=== PATIENT | female | born 1950 | race Hispanic/Latino ===

== ENCOUNTER 2019-11-05 07:38 | Outpatient (CLI) | payer MEDICARE ==
--- NOTE | 2019-11-05 10:26 | MRI ---
EXAM: MRI of the brain without and with contrast HISTORY: Dizziness and headaches. History of lung cancer COMPARISON: None TECHNIQUE: Multiplanar multisequence MR images were obtained of the brain without and with IV contras t. FINDINGS: The brain demonstrates normal signal intensity on all obtained sequences. No restricted diffusion. No abnormal enhancement. Pseudoenhancement from artifact is seen in the right temporal lobe. No hydronephrosis. No extra-axial fluid collection or intracranial hemorrhage. The expected flow voids are present. Corpus callosum, pituitary, and craniocervical junction are within normal limits. The calvarium and overlying soft tissues are unremarkable. The paranasal sinuses and mastoid air cells are well aerated. IMPRESSION: No evidence of acute intracranial abnormality.
[2019-11-05] MEDS ORDERED: Magnevist 469MG/ML 20 ML VIAL ONE (10:54)
--- NOTE | 2019-11-05 11:32 | PET ---
Radionucleotide PET scan with CT attenuation correction HISTORY: Malignant neoplasm left upper lung lobe. Initial staging. COMPARISON: The report from CT chest [facility] in [place] dated 09/29/2019. Images from that exam are not available. There are images from a CT lung biopsy dated 10/21/2019 available and a chest radiograph from 10/21/2019. FINDINGS: Physiologic uptake of the radiotracer throughout the enteric system and along each urinary tract. There is markedly increased uptake associated with the large mass at the lateral aspect of the left upper lobe posteriorly. Maximum SUV 32.2. No abnormal uptake within the mediastinum. Lobular prominence of the right thyroid lobe evident without abnormal uptake. No focal abnormalities are evident within the liver. Nondiagnostic CT attenuation correction images show calcified and noncalcified, nonenlarged mediastin al lymph nodes. Evidence of healed granulomatous disease. There is calcification of the coronary arteries. Mild fusiform ectasia of the lower abdominal aorta measuring up to 2.5 cm AP diameter. Dive rticula arise from the colon without adjacent inflammation. IMPRESSION: Markedly hypermetabolic left upper lobe lung mass. No evidence of metastatic disease. Atherosclerosis. Diverticulosis. No evidence of diverticulitis.
--- NOTE | 2019-11-05 13:20 | ULT ---
ULTRASOUND THYROID STANDARD: HISTORY: Thyroid nodules. COMPARISON: None. FINDINGS: Real-time otero scale and color evaluation of the thyroid was performed. The isthmus measures 3 mm in AP dimension. The right lobe measures 2.6 x 4.8 x 1.9 cm and the left l obe measures 1.8 x 4.3 x 1.7 cm. In the inferior pole of the right lobe is an isoechoic wider than tall nodule with lobular margins wi thout echogenic foci measuring 1.9 x 2.1 x 1.5 cm. This is a TIRADS 4: moderately suspicious in siz e, fine needle aspiration is recommended. At the interpolar region of the right lobe of the thyroid posterior margin is a well-defined solid hy poechoic nodule which is wider than tall with well-defined margins without echogenic foci measuring 1 .2 x 1.2 x 0.7 cm. This is TIRADS 4: moderately suspicious. Given its size, followup in 6 months t o 1 year is recommended. In the superior pole left lobe of the thyroid is a solid hypoechoic nodule which is wider than tall m easuring 0.9 x o.7 x 0.6 cm with ill-defined margins without echogenic foci. This is TIRADS 4: mode rately suspicious. Given its small size, no followup or aspiration is required. IMPRESSION: 1. Dominant nodule inferior pole of the right lobe of the thyroid does meet fine needle aspiration p er TIRADS criteria. 2. The smaller nodule in the right lobe of the thyroid does meet 4-obhaa-2-year followup per TIRADS criteria. POS: OFF
== END 2019-11-05 07:39 | disposition home or self-care (01) ==
LOC: PET 07:38
PROVIDERS: ATTEND Internal Medicine Hematology & Oncology
DX: C34.12 Malignant neoplasm of upper lobe, left bronchus or lung (principal); E04.1 Nontoxic single thyroid nodule; I70.90 Unspecified atherosclerosis
CPT/HCPCS: 70553; 76536; 78815; A9552; A9579

== ENCOUNTER 2020-03-10 09:05 | Outpatient (CLI) | payer MEDICARE ==
[2020-03-10] MEDS ORDERED: Iopamidol 370 76% 100 ML VIAL ONE (11:42)
--- NOTE | 2020-03-10 14:13 | CT ---
CHEST CT: DATE: 03/10/2020. COMPARISON: None. HISTORY: Lung cancer. TECHNIQUE: Axial CT imaging at 5 mm intervals from the thoracic inlet through the upper abdomen with intravenous contrast. Coronal and sagittal reformatted imaging provided. FINDINGS: The partially imaged thyroid gland is heterogeneous and possibly enlarged on the right. There may be a thyroid nodule on the right, but assessment is limited. Recommend a followup thyroid ultrasound. No lymphadenopathy is noted in the axillary regions. No hilar or mediastinal lymphadenopathy is appr eciated. The patient appears status post left upper lobectomy. There is small volume anterior superior medias tinal fluid. No dominant pulmonary parenchymal mass lesion or nodule noted within the left lower lobe. There is a tiny right middle lobe nodule measuring in the 4 mm range on axial image 31. When compare d to PET CT performed 11/05/2019, the tiny pulmonary nodule within the right middle lobe is probably s table. Limited assessment of the upper abdomen appears grossly unremarkable. Review of the osseous structures demonstrates interval development of focal areas of sclerosis involv ing the lateral aspect of the left posterolateral 6th rib and lateral left 7th rib. The appearance i s most consistent with 2 new subacute fractures. Clinical correlation is essential. Osseous metasta tic disease is a much less likely possibility given the appearance of the finding at the level of the 6th rib and the fact that this involves 2 adjacent ribs. IMPRESSION: 1. Status post left upper lobectomy. No lymphadenopathy. 2. Tiny right middle lobe pulmonary nodule, stable when compared to prior imaging. 3. Abnormal appearance of the thyroid gland for which dedicated thyroid ultrasound is advised. 4. Abnormality involving the left 6th and 7th ribs, likely on the basis of interval development of s ubacute rib fractures. Continued followup advised. POS: KRISHNA
== END 2020-03-10 09:06 | disposition home or self-care (01) ==
LOC: CT 09:05
PROVIDERS: ATTEND Internal Medicine Medical Oncology
DX: C34.12 Malignant neoplasm of upper lobe, left bronchus or lung (principal); R91.1 Solitary pulmonary nodule; R93.7 Abnormal findings on diagnostic imaging of other parts of musculoskeletal system; Z90.2 Acquired absence of lung [part of]
CPT/HCPCS: 71260; Q9967

== ENCOUNTER 2020-04-06 08:45 | Day surgery (SDC) | payer MEDICARE ==
[2020-04-06] MEDS ORDERED: Sodium Chloride 0.9% 20 ML ONE (09:00)
[2020-04-06] MEDS ORDERED: Acetaminophen 500 MG TAB PO PRN (09:12)
[2020-04-06] MEDS ORDERED: diphenhydrAMINE 25 MG CAP PO PRN (09:12)
[2020-04-06] MEDS ORDERED: Magnesium 2 GM/50 ML 2 GM in Premix Bag 1 BAG IVPB SCH (09:15)
[2020-04-06] MEDS ORDERED: Calcium Gluconate 4.6 MEQ in Sodium Chloride 0.9% 100 ML IVPB SCH (09:30)
[2020-04-06 16:32] VITALS: TEMP 98
[2020-04-06 17:49] VITALS: BP 138/70
[2020-04-06 17:56] LABS: #Eosinphils 0.1 thou/uL (0.0-0.7); #Lymphocytes 2.2 thou/uL (1.20-3.40); #Monocytes 0.8 thou/uL (0.11-0.59); #Neutrophils 7.4 thou/uL (1.40-6.50); %Basophils 0.5 % (0.0-1.0); %Eosinophils 0.8 % (0.0-10.0); %Lymphocytes 20.4 % (21.0-51.0); %Monocytes 7.8 % (0.0-10.0); %Neutrophils 70.5 % (42.0-75.0); Hemoglobin 10.9 g/dL (12.0-16.0); Mean Corpuscular Hemoglobin 31.7 pg (27.0-31.0); Mean Corpuscular Volume 93.3 fL (78.0-98.0); Mean Platelet Volume 9.1 fL (7.4-10.4); Platelet Count 212 thou/uL (130-400); Red Blood Cell (RBC) Count 3.45 mill/uL (4.20-5.40); White Blood Cell (WBC) Count 10.5 thou/uL (4.8-10.8)
[2020-04-06 18:22] LABS: ALT (SGPT) 10 U/L (8-55); AST (SGOT) 14 U/L (5-34); Albumin 3.8 g/dL (3.4-4.8); Alkaline Phosphatase 101 U/L (40-110); Anion Gap 14 mmol/L (10-20); BUN (Urea Nitrogen) 9 mg/dL (9.8-20.1); Bilirubin, Total 0.5 mg/dL (0.2-1.2); Calc. Creatinine Clearance 0 mL/min (70-130); Calcium 7.1 mg/dL (7.8-10.44); Carbon Dioxide 23 mmol/L (23-31); Chloride 104 mmol/L (98-107); Estimated GFR-MDRD 71; Globulin 2.5 g/dL (2.4-3.5); Glucose 99 mg/dL (80-115); Magnesium 1.4 mg/dL (1.6-2.6); Potassium 4.3 mmol/L (3.5-5.1); Protein, Total 6.3 g/dL (6.0-8.3); Sodium 137 mmol/L (136-145)
== END 2020-04-06 17:50 | disposition home or self-care (01) ==
LOC: ONC/OP 08:45
PROVIDERS: ATTEND Internal Medicine Medical Oncology
PROC: 30233N1 Transfusion of Nonautologous Red Blood Cells into Peripheral Vein, Percutaneous Approach (ICD-10-PCS; principal; 2020-04-06)
DX: D64.9 Anemia, unspecified (principal); E83.42 Hypomagnesemia; E83.51 Hypocalcemia
CPT/HCPCS: 36430; 80053; 83735; 85025; 86850; 86900; 86901; 96365; 96367; J3475; J3490; P9016; Q0163

== ENCOUNTER 2020-07-05 09:12 | Outpatient (CLI) | payer MEDICARE ==
--- NOTE | 2020-07-05 10:35 | CT ---
CT of the chest: 07/05/2020 COMPARISON: 03/10/2020 HISTORY: Left upper lobectomy for lung cancer, history of chemotherapy treatment TECHNIQUE: Axial CT imaging obtained at 3 mm intervals through the chest with IV contrast. Coronal an d sagittal reformatted imaging obtained. FINDINGS: No axillary lymphadenopathy is seen. The imaged upper abdomen appears stable. There is a stable nonspecific hyperenhancing lesion within t he posterior aspect of the right lobe of the liver measuring 7 mm on axial image 68. There is a tiny hypodensity in the superior aspect of the right lobe of the liver on image [address] ability of these lesions suggests benign etiology. These lesions are too small to characterize at this time and continued follow-up is suggested. No significant pleural, pericardial, or mediastinal fluid is seen. Patient is status post right upper lobectomy. There has been interval development of subcarinal lymphadenopathy with internal areas of hypodensity suggesting possible internal necrosis. This new subcarinal adenopathy measures 1.9 cm in AP dimension. No left hilar lymphadenopathy is seen. There is no pneumothorax on either side. There are mild increased linear interstitial densities noted within the left lower lobe, particularly within the peripheral inferior aspect of the left lower lobe. Similar mild increased linear interstitial density seen peripherally within the inferior lateral aspe ct of the right lower lobe. No discrete pulmonary parenchymal mass lesion or nodule is noted within the right lung. Stable small anterior right middle lobe nodule noted on image 57 measuring in the 4 mm range. No discrete endobronchial lesion is seen. There is a new precarinal lymph node measuring 1.1 cm in AP dimension. There is a new subtle small ri ght hilar node best seen on axial image 38 measuring 8 mm in craniocaudal dimension. Stable prominence of the right lobe of the thyroid gland noted. Right thyroid nodule was better asses sed on the 11/05/2019 ultrasound. Review of the osseous structures demonstrates subtle irregularity involving the cortex of the left si xth and seventh ribs, less conspicuous than on the prior examination, likely related to prior fractures. These findings would be better assessed on follow-up PET scan as well to exclude the possi bility of pathologic fracture on the basis of subtle metastatic lesions. IMPRESSION: Interval development of lymphadenopathy within the subcarinal region. Additional new lymp h nodes are seen in the region of the precarinal area and right hilum. Findings are suspicious for malignancy. Correlation with PET scan advised. Results discussed with Dr. Moeller 10:31 AM 07/05/2020
[2020-07-05] MEDS ORDERED: Iopamidol 370 76% 100 ML VIAL ONE (16:16)
== END 2020-07-05 09:13 | disposition home or self-care (01) ==
LOC: BICCT 09:12
PROVIDERS: ATTEND Internal Medicine Medical Oncology
DX: Z08 Encounter for follow-up examination after completed treatment for malignant neoplasm (principal); R59.0 Localized enlarged lymph nodes; Z85.118 Personal history of other malignant neoplasm of bronchus and lung; Z98.890 Other specified postprocedural states
CPT/HCPCS: 36415; 71260; 80053; 82248; 83615; 83735; 84100; 84550; Q9967

== ENCOUNTER 2020-07-14 08:14 | Outpatient (CLI) | payer MEDICARE ==
--- NOTE | 2020-07-14 10:29 | PET ---
EXAM: PET/CT HISTORY: Malignant neoplasm of left lung, upper lobe. Last chemotherapy was in March 2020. Exam is requested fo r restaging and subsequent treatment planning. TECHNIQUE: PET scanning with CT attenuation correction was performed from the base of the brain to the proximal thighs following the intravenous administration of 12.1 millicuries [id number]. COMPARISON: 11/05/2019 CORRELATION: CT chest dated 07/05/2020 FINDINGS: There is hypermetabolic activity in the subcarinal lymph nodes with an SUV of 13.8. No alex hypermet abolism is seen in the hilar regions, other mediastinal lymph nodes, neck, axillary, abdomen or pelvis. No hypermetabolic pulmonary nodules, liver, adrenal or skeletal lesions are seen. There is focally increased uptake in the region of the left tonsil with an SUV of 7. There is physiologic activity in the GI and tracts and the visualized portions of the brain. The CT scan used for attenuation correction demonstrates no evidence of right pleural effusion or asc ites. A tiny left pleural effusion is noted. 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 RECOMMENDATION: A contrast-enhanced CT scan of the neck should be performed to evaluate the left tonsil.
== END 2020-07-14 08:15 | disposition home or self-care (01) ==
LOC: PET 08:14
PROVIDERS: ATTEND Internal Medicine Medical Oncology
DX: C34.12 Malignant neoplasm of upper lobe, left bronchus or lung (principal)
CPT/HCPCS: 78815; A9552